=== PATIENT | male | born 1995 | race Caucasian/White ===

== ENCOUNTER 2016-12-14 21:13 | Emergency (ER) | payer SELFPAY ==
[~2016-12-14] VITALS: Ht 172.7 cm; Wt 61.2 kg
[2016-12-14] MEDS ORDERED: AMOX500C PO (21:44)
[2016-12-14] MEDS ORDERED: HYDR-971 PO (21:44)
[2016-12-14 21:45] VITALS: BP 117/72
--- NOTE | 2016-12-14 21:45 | PHYS DOC ---
Past Medical History Past Medical History: Anxiety Past Surgical History: No Surgical History Adult General Chief Complaint Chief Complaint: EARACHE/EAR PAIN HPI HPI Patient is a 21 year old male presents emergency department stating that he has been having ear pain for the last 3-4 days. He states that he's been having some green colored drainage coming from the ear as well as dental pain in the left lower molar area. He denies any fever, chills or any nausea vomiting. She denies any difficulty hearing. Review of Systems Review of Systems Constitutional: Denies fever or chills [] Eyes: Denies change in visual acuity, redness, or eye pain [] HENT: Denies nasal congestion or sore throat [] Respiratory: Denies cough or shortness of breath [] Cardiovascular: No additional information not addressed in HPI [] GI: Denies abdominal pain, nausea, vomiting, bloody stools or diarrhea [] : Denies dysuria or hematuria [] Musculoskeletal: Denies back pain or joint pain [] Integument: Denies rash or skin lesions [] Neurologic: Denies headache, focal weakness or sensory changes [] Endocrine: Denies polyuria or polydipsia [] Physical Exam Physical Exam Constitutional: Well developed, well nourished, no acute distress, non-toxic appearance. [] HENT: Normocephalic, atraumatic, bilateral external ears normal, oropharynx moist, no oral exudates, nose normal. Bilateral tympanic membranes appear to be normal. Patient with abscess noted to the left molar area. Patient was also noted to have exudate on the right tonsil. Shunt with anterior cervical adenopathy noted. Eyes: PERRLA, EOMI, conjunctiva normal, no discharge. [] Neck: Normal range of motion, no tenderness, supple, no stridor. [] Cardiovascular:Heart rate regular rhythm, no murmur [] Lungs & Thorax: Bilateral breath sounds clear to auscultation [] Skin: Warm, dry, no erythema, no rash. [] Back: No tenderness Extremities: No tenderness, no cyanosis, no clubbing, ROM intact, no edema. [] Neurologic: Alert and oriented X 3, normal motor function, normal sensory function, no focal deficits noted. [] Psychologic: Affect normal, judgement normal, mood normal. [] EKG EKG [] Radiology/Procedures Radiology/Procedures [] Course & Med Decision Making Course & Med Decision Making Pertinent Labs and Imaging studies reviewed. (See chart for details) She'll be provided with a dental list to follow up with. Patient will be placed on amoxicillin for a dental infection. Patient will also be provided with hydrocodone for severe pain and discomfort. Patient was instructed this medication will cause drowsiness do not take any be alert and oriented. Also recommended ibuprofen 800 mg every 8 hours. Patient will be discharged home in stable condition. Signs and symptoms to return back to emergency department been provided. [] Dragon Disclaimer Dragon Disclaimer This electronic medical record was generated, in whole or in part, using a voice recognition dictation system. Departure Departure Impression: Primary Impression: Dental abscess Disposition: HOME, SELF-CARE Condition: STABLE Patient Instructions: Dental Abscess Additional Instructions: Activity as tolerated. Medication as prescribed. Ibuprofen 800 mg every 8 hours with food stop taking few develop an upset stomach. Hydrocodone for severe pain and discomfort. This medication will cause drowsiness do not take any be alert and oriented. Follow-up with a dentist in the next 7-10 days. Return back to emergency prior signs symptoms of become worse. Scripts Hydrocodone/Apap 5-325 (NORCO 5-325 TABLET) 1 Each Tablet 1 TAB PO PRN Q6HRS Y for PAIN, #10 TAB 0 Refills Prov: MICHELLE SMILEY APRN 12/14/16 Amoxicillin (AMOXICILLIN) 500 Mg Capsule 1 CAP PO QID, #40 CAP Prov: MICHELLE SMILEY APRN 12/14/16 MICHELLE SMILEY APRN December 14, 2016 21:45
[2016-12-14] MEDS ORDERED: HYDROcodone/APAP 5/325MG 1 TAB TABLET PO ONE (22:00)
== END 2016-12-14 22:00 | disposition home or self-care (01) ==
LOC: ER 21:13
DX: K04.7 Periapical abscess without sinus (principal); H92.09 Otalgia, unspecified ear
CPT/HCPCS: 99283

== ENCOUNTER 2017-01-28 21:09 | Emergency (ER) | payer SELFPAY ==
[~2017-01-28] VITALS: Ht 172.7 cm; Wt 63.2 kg
[~2017-01-28 21:09] MED LIST: AMOX500C PO; HYDR-971 PO
[2017-01-28 21:15] VITALS: BP 133/68
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
--- NOTE | 2017-01-29 08:37 | RAD ---
KNEE 3 VIEWS LEFT Clinical Indication: pain to medial left knee old bruise noted Comparison: None. Findings: There is no acute fracture or dislocation. The tricompartmental joint spaces are maintained. The patella is in anatomic position. There is no soft tissue abnormality. There is no significant joint effusion. IMPRESSION: No acute bone abnormality.
== END 2017-01-28 23:05 | disposition home or self-care (01) ==
LOC: ER 21:09
DX: M25.562 Pain in left knee (principal); Z88.1 Allergy status to other antibiotic agents; Z88.2 Allergy status to sulfonamides; Y08.89XA Assault by other specified means, initial encounter; Y93.89 Activity, other specified; Y99.8 Other external cause status; Y92.89 Other specified places as the place of occurrence of the external cause
CPT/HCPCS: 73564; 99284